=== PATIENT | male | born 1990 | race Caucasian/White ===

== ENCOUNTER → 2016-05-07 | Outpatient (CLI) | payer MEDICARE, OTHER ==
--- NOTE | 2016-05-08 11:58 | RADRPT ---
PROCEDURE: XR Tibia and Fibula. CLINICAL INDICATION: Pain TECHNIQUE: AP, lateral and oblique views of the left tibia and fibula were obtained. COMPARISON: No prior studies are available for comparison. FINDINGS: There is normal mineralization and alignment. No fracture or osseous lesion is identified. The joint s are unremarkable. There are normal soft tissues without evidence of soft tissue swelling. IMPRESSION: Normal left tibia and fibula. RPTAT: AA .Nick Jay MD, Date Time Electronically viewed and signed by .Nick Jay MD, on 05/08/2016 11:58 .J/
--- NOTE | 2016-05-08 11:59 | RADRPT ---
PROCEDURE: Left knee x-ray CLINICAL INDICATION: Knee pain TECHNIQUE: Three views of the left knee were obtained. COMPARISON: None FINDINGS: There is normal mineralization. No acute fracture or dislocation is seen. There is no joint effusi on. There is no significant soft tissue swelling. RPTAT: AA IMPRESSION: Normal x-ray of the left knee. .Nick Jay MD, Date Time Electronically viewed and signed by .Nick Jay MD, MD on 05/08/2016 11:59 .Edgar/
== END | disposition home or self-care (01) ==
LOC: RAD 16:32
PROVIDERS: ATTEND Specialist
DX: M25.562 Pain in left knee (principal); M79.605 Pain in left leg
CPT/HCPCS: 73562; 73590